=== PATIENT | female | born 1960 | race Caucasian/White ===

== ENCOUNTER 2018-01-11 16:42 | Emergency (ER) | payer OTHER ==
[~2018-01-11] VITALS: Ht 162.6 cm; Wt 88.5 kg
[~2018-01-11 16:42] MED LIST: CLON0.2T PO; LISI-603 PO; METO50TA16 PO; WATER PILL PO
[2018-01-11] MEDS ORDERED: HYDR25TA4 PO (17:11)
[2018-01-11] MEDS ORDERED: LOSA50TA21 PO (17:11)
[2018-01-11] MEDS ORDERED: ALPR2TAB7 PO (17:11)
[2018-01-11] MEDS ORDERED: AMLO10TA6 PO (17:11)
[2018-01-11] MEDS ORDERED: ATEN50TA PO (17:11)
[2018-01-11] MEDS ORDERED: KETOROLAC TROMETHAMINE 60 MG INJ IM ONE ×2 (17:15→17:17)
--- NOTE | 2018-01-11 17:29 | NUR ---
PT IS IN ROOM #1B. DR HARMON EVALUATED THE PT.
[2018-01-11 17:49] VITALS: BP 128/62
--- NOTE | 2018-01-11 17:56 | NUR ---
Patient discharged to home in stable conditon. Written and verbal after care instructions given. Patient verbalizes understanding of instructions.
== END 2018-01-11 17:57 | disposition home or self-care (01) ==
LOC: ER 16:46
DX: M17.12 Unilateral primary osteoarthritis, left knee (principal); I10 Essential (primary) hypertension; G89.29 Other chronic pain; M54.9 Dorsalgia, unspecified; F17.200 Nicotine dependence, unspecified, uncomplicated
CPT/HCPCS: 73564; 96372; 99284; A4663; J1885

== ENCOUNTER 2018-02-01 15:26 | Emergency (ER) | payer OTHER ==
[~2018-02-01] VITALS: Ht 162.6 cm; Wt 88.5 kg
[~2018-02-01 15:26] MED LIST changes: +ALPR2TAB7 PO; +AMLO10TA6 PO; +ATEN50TA PO; +HYDR25TA4 PO; +LOSA50TA21 PO; -METO50TA16 PO; -WATER PILL PO
[2018-02-01] MEDS ORDERED: KETOROLAC TROMETHAMINE 30 MG INJ IM ONE (16:00)
[2018-02-01] MEDS ORDERED: KETOROLAC TROMETHAMINE 30 MG INJ ONE (16:05)
--- NOTE | 2018-02-01 16:30 | NUR ---
Patient discharged to home in stable conditon. Written and verbal after care instructions given to patient. Patient verbalizes understanding of instructions.
== END 2018-02-01 16:32 | disposition home or self-care (01) ==
LOC: ER 15:30
DX: G89.29 Other chronic pain (principal); M25.562 Pain in left knee; I10 Essential (primary) hypertension; F17.200 Nicotine dependence, unspecified, uncomplicated
CPT/HCPCS: 96372; 99283; J1885; A4663